=== PATIENT | female | born 1995 | race Caucasian/White ===

== ENCOUNTER 2018-01-19 10:42 | Emergency (ER) | payer BC ==
[2018-01-19] MEDS ORDERED: Ibuprofen TAB* 600 MG PO ONE (11:43)
[2018-01-19 11:45] VITALS: BP 133/74
--- NOTE | 2018-01-19 11:56 | UC ---
Lower Extremity/Ankle HPI - HPI Summary HPI Summary: pt c/o pain and increasing swelling to the top of her left foot for about 1 month. she went to an in [place] about 2 weeks ago and had a negative xray. she is here for worse pain/swelling. no overt injury but is on her feet and walking all the time for work and school. - History of Current Complaint Stated Complaint: RIGHT FOOT COMP Time Seen by Provider: 01/19/18 11:38 Hx Obtained From: Patient Hx Last Menstrual Period: Mid December Onset/Duration: Gradual Onset Pain Intensity: 2 Aggravating Factor(s): Standing, Ambulation Alleviating Factor(s): Nothing Able to Bear Weight: Yes - Risk Factors Gout Risk Factors: Negative Septic Arthritis Risk Factor: Negative - Allergies/Home Medications Allergies/Adverse Reactions: Allergies Allergy/AdvReac Type Severity Reaction Status Date / Time No Known Allergies Allergy Verified 01/19/18 11:45 Home Medications: Home Medications Ibuprofen TAB* [Advil TAB*] 200 mg PO DAILY PRN 01/19/18 [History Confirmed 10/08] PMH/Surg Hx/FS Hx/Imm Hx Previously Healthy: Yes - Surgical History Surgical History: Yes Surgery Procedure, Year, and Place: wisdom teeth - Family History Known Family History: Positive: None - Social History Occupation: Employed Part-time, Student Alcohol Use: None Substance Use Type: None Smoking Status (MU): Never Smoked Tobacco - Immunization History Vaccination Up to Date: Yes Review of Systems Constitutional: Negative Skin: Negative Eyes: Negative ENT: Negative Respiratory: Negative Cardiovascular: Negative Gastrointestinal: Negative Genitourinary: Negative Motor: Negative Neurovascular: Negative Musculoskeletal: Other: - pain/swelling L dorsal foot Neurological: Negative Psychological: Negative Is Patient Immunocompromised?: No All Other Systems Reviewed And Are Negative: Yes Physical Exam Triage Information Reviewed: Yes Appearance: Well-Appearing Vital Signs: Initial Vital Signs Temp 98.5 F 01/19/18 11:30 Pulse 97 01/19/18 11:30 Resp 20 01/19/18 11:30 BP 133/74 01/19/18 11:30 Pulse Ox 100 01/19/18 11:30 Vital Signs Reviewed: Yes Eyes: Positive: Conjunctiva Clear ENT: Positive: Normal ENT inspection Neck: Positive: Supple, Nontender, No Lymphadenopathy Respiratory: Positive: Lungs clear, Normal breath sounds Cardiovascular: Positive: RRR, No Murmur Abdomen Description: Positive: Nontender, No Organomegaly, Soft Bowel Sounds: Positive: Present Musculoskeletal: Positive: Other: - RLE: hip, knee, achilles, ankle are atraumatic/non tender. R dorsal foot with mild swelling but no erythema. area not warm but is tender over 2nd metatarsal. gross s/v/m is intact. Neurological: Positive: Alert Psychological: Positive: Age Appropriate Behavior Skin Exam: Normal Diagnostics - Radiology No standard instances Radiology Interpretation Completed By: Radiologist - remote stress fx 2nd metatarsal(see report) Lower Extremity Course/Dx - Course Course Of Treatment: no concern for cellulitis or gout. + stress fx - Differential Dx/Diagnosis Provider Diagnoses: stress fx R foot Discharge - Sign-Out/Discharge Documenting (check all that apply): Discharge/Admit/Transfer - Discharge Plan Condition: Stable Disposition: HOME Patient Education Materials: Foot Fracture in Adults (ED) Forms: *School Release Referrals: Wale Gracia MD [Medical Doctor] - As Soon As Possible Additional Instructions: MALISSA AND POST OP SHOE UNTIL CLEARED. - Billing Disposition and Condition Condition: STABLE Disposition: HOME
--- NOTE | 2018-01-19 12:20 | RAD ---
INDICATION: Chronic right foot pain COMPARISON: None TECHNIQUE: AP, lateral, and oblique views were obtained. FINDINGS: There is a remote stress fracture of the second metatarsal. There are no additional significant bony findings. The articular relationships are maintained. There is mild soft tissue swelling over the dorsum of the forefoot IMPRESSION: REMOTE STRESS FRACTURE SECOND METATARSAL. SOFT TISSUE SWELLING.
== END 2018-01-19 12:41 | disposition home or self-care (01) ==
LOC: UCCORT 10:42
DX: M84.374A Stress fracture, right foot, initial encounter for fracture (principal); X58.XXXA Exposure to other specified factors, initial encounter; Y93.9 Activity, unspecified; Y92.9 Unspecified place or not applicable
CPT/HCPCS: 99203; A9270-GY; G0463